=== PATIENT | female | born 1950 | race Caucasian/White ===

== ENCOUNTER 2018-02-14 06:31 | Day surgery (SDC) | payer MEDICARE, OTHER ==
[2018-02-14] MEDS ORDERED: PROPOFOL 200 MG INJ (07:00)
[2018-02-14] MEDS ORDERED: LIDOCAINE 2% (SDV) 5 ML INJ (08:46)
[2018-02-14] MEDS ORDERED: PROPOFOL 40 ML (08:46)
== END 2018-02-14 09:58 | disposition home or self-care (01) ==
LOC: GIL 06:31
DX: Z12.11 Encounter for screening for malignant neoplasm of colon (principal); D12.5 Benign neoplasm of sigmoid colon; D50.9 Iron deficiency anemia, unspecified; K44.9 Diaphragmatic hernia without obstruction or gangrene; K21.0 Gastro-esophageal reflux disease with esophagitis; K64.8 Other hemorrhoids; I10 Essential (primary) hypertension; E78.5 Hyperlipidemia, unspecified; M06.9 Rheumatoid arthritis, unspecified; Z79.82 Long term (current) use of aspirin
CPT/HCPCS: 43239; 88305